=== PATIENT | female | born 1955 | race Caucasian/White ===

== ENCOUNTER → 2023-04-13 | Outpatient (CLI) | payer OTHER ==
[2023-04-13 11:33] LABS: BASOPHILS ABSOLUTE AUTO 0.05 K/mm3 (0.00-0.23); BASOPHILS PERCENT AUTO 1 % (0-2); EOSINOPHILS ABSOLUTE AUTO 0.23 K/mm3 (0.00-0.68); EOSINOPHILS PERCENT AUTO 5 % (0-6); IMMATURE GRAN ABSOLUTE AUTO 0.01 K/mm3 (0.00-0.10); IMMATURE GRAN PERCENT AUTO 0 % (0-1); LYMPHOCYTES ABSOLUTE AUTO 1.96 K/mm3 (0.84-5.20); LYMPHOCYTES PERCENT AUTO 41 % (21-46); MONOCYTES ABSOLUTE AUTO 0.36 K/mm3 (0.16-1.47); MONOCYTES PERCENT AUTO 8 % (4-13); Mean Corpuscular HGB 29.6 pg (26.0-34.0); Mean Corpuscular HGB Conc 32.6 g/dL (31.5-36.5); Mean Corpuscular Volume 91 fL (80-100); Mean Platelet Volume 11.1 fL (9.1-12.4); NEUTROPHILS ABSOLUTE AUTO 2.22 K/mm3 (1.96-9.15); NEUTROPHILS PERCENT AUTO 46 % (41-73); Platelet Count 156 K/mm3 (150-400); RDW Coefficient Variation 13.2 % (11.7-14.2); RDW Standard Deviation 43.9 fL (35.1-46.3); Red Blood Cell Count 4.73 M/mm3 (3.80-5.20); White Blood Cell Count 4.83 K/mm3 (4.00-11.30)
[2023-04-13 11:53] LABS: Bun/Creatinine Ratio 20.2 (12.0-20.0); Calcium, Blood 9.2 mg/dL (8.5-10.1); Creatinine, Blood 0.84 mg/dL (0.40-1.00); Free Thyroxine 0.98 ng/dL (0.70-1.60); Potassium, Blood 4.1 mmol/L (3.5-5.5); Thyroid Stimulating Hormone 2.235 uIU/mL (0.360-4.800)
== END | disposition home or self-care (01) ==
LOC: LAB SHORT 11:29 → LAB 11:29
PROVIDERS: Chiropractor
DX: E07.9 Disorder of thyroid, unspecified (principal); R49.0 Dysphonia
CPT/HCPCS: 80048; 84439; 84443; 85025

== ENCOUNTER 2025-06-12 06:16 | Day surgery (SDC) | payer OTHER ==
[~2025-06-12] VITALS: Ht 149.9 cm; Wt 61.6 kg
[2025-06-12] MEDS ORDERED: Lidocaine 1%-Epineph 1:200000 30 ML SDV ONE (06:57)
[2025-06-12] MEDS ORDERED: LOSA25 PO (06:59)
[2025-06-12] MEDS ORDERED: ONDA4ODT MM (07:00)
[2025-06-12] MEDS ORDERED: Dexamethasone Sod Phos 10 MG/ML 1ML VIAL ONE (07:04)
[2025-06-12] MEDS ORDERED: Ondansetron HCl 2 MG / ML 2ML Vial ONE (07:04)
[2025-06-12] MEDS ORDERED: Dexmedetomidine HCL 200 MCG / 2 ML ONE (07:33)
[2025-06-12] MEDS ORDERED: FentaNYL Citrate 50 MCG/ML 2 ML Injection ONE (07:47)
[2025-06-12 09:30] VITALS: BP 165/101
--- NOTE | 2025-06-12 10:12 | NUR ---
06/12/25 1012 [place] granados PT REPORTS PAIN IS MANAGEABLE LEVEL OF PAIN AND IS AGREEABLE TO D/C HOME WITH FAMILY.
== END 2025-06-12 10:09 | disposition home or self-care (01) ==
LOC: ORSCSDS 06:16
PROVIDERS: Otolaryngology
PROC: 0CUV0JZ Supplement Left Vocal Cord with Synthetic Substitute, Open Approach (ICD-10-PCS; principal; 2025-06-12 07:30)
DX: J38.00 Paralysis of vocal cords and larynx, unspecified (principal); R49.0 Dysphonia; I10 Essential (primary) hypertension; Z79.899 Other long term (current) drug therapy
CPT/HCPCS: A9270; C1713; J1100; J2405; J2704; J3010; J7120

== ENCOUNTER 2025-10-01 10:01 | Day surgery (SDC) | payer OTHER ==
[~2025-10-01] VITALS: Ht 152.4 cm; Wt 62.5 kg
[~2025-10-01 10:01] MED LIST: LOSA25 PO; Lidocaine 1%-Epineph 1:200000 30 ML SDV ONE; ONDA4ODT MM
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
[2025-10-01] MEDS ORDERED: FentaNYL Citrate 50 MCG/ML 2 ML Injection ONE ×2 (12:41→13:12)
[2025-10-01] MEDS ORDERED: Dexamethasone Sod Phos 10 MG/ML 1ML VIAL ONE (13:37)
[2025-10-01] MEDS ORDERED: Ondansetron HCl 2 MG / ML 2ML Vial ONE (13:37)
[2025-10-01] MEDS ORDERED: Phenylephrine HCl 100 MCG/ML-NS 10MLSYR (1MG/10ML) ONE (13:37)
[2025-10-01] MEDS ORDERED: ePHEDrine Sulfate 50 MG/ML 1ML Injection ONE (13:38)
[2025-10-01 15:20] VITALS: BP 156/88
--- NOTE | 2025-10-01 15:26 | NUR ---
10/01/25 Adamaris6 Sung Goetz COMMUNICATING WITH PT THROUGH [employer] WITH [employer]. [employer] MA[employer] ID # [id number]. PER DR BANERJEE PTH LAB TO BE DRAWN AND RESULTS DO NOT NEED TO BE REULTED BEFORE PT D/C. LAB DRAWN BY LISA GARCIA.
== END 2025-10-01 16:39 | disposition home or self-care (01) ==
LOC: ORSCSDS 10:01
PROVIDERS: Otolaryngology
PROC: 0GTK0ZZ Resection of Thyroid Gland, Open Approach (ICD-10-PCS; principal; 2025-10-01 11:30)
DX: C73 Malignant neoplasm of thyroid gland (principal); J38.00 Paralysis of vocal cords and larynx, unspecified; I10 Essential (primary) hypertension; Z86.73 Personal history of transient ischemic attack (TIA), and cerebral infarction without residual deficits; Z79.899 Other long term (current) drug therapy; Z80.0 Family history of malignant neoplasm of digestive organs
CPT/HCPCS: 83970; 88305; 88307; J1100; J2371; J2405; J2704; J3010; J7120